=== PATIENT | male | born 1965 | race Caucasian/White ===

== ENCOUNTER 2018-01-31 06:52 | Day surgery (SDC) | payer BC ==
--- NOTE | 2018-01-28 11:31 | HP ---
HISTORY AND PHYSICAL: DATE OF ADMISSION: 01/31/18 DATE OF SURGERY: 01/31/18 DATE OF OFFICE VISIT: 01/28/18 SURGEON: Dr. Martínez * (DICTATED BY LISA FUNEZ) PROCEDURE: Right knee arthroscopy with partial meniscectomy, possible chondroplasty, possible synovectomy. CHIEF COMPLAINT: Right knee pain. HISTORY OF PRESENT ILLNESS: Mr. Peck is a 52-year-old gentleman with complaints of right knee pain and MRI confirms meniscus tear and he has elected to proceed with right knee arthroscopy with partial meniscectomy. PAST MEDICAL HISTORY: Denies. PAST SURGICAL HISTORY: Left hand surgery and dental implants. CURRENT MEDICATIONS: 1. Glucosamine. 2. Lipoflavonoid. ALLERGIES: None. FAMILY HISTORY: Cancer and diabetes. SOCIAL HISTORY: A 52-year-old gentleman lives with his and daughter. He does not smoke cigarettes, smokes occasional marijuana, uses occasional alcohol. REVIEW OF SYSTEMS: A complete 14-point review of systems was reviewed with the patient all negative and noncontributory. He denies history of DVT, PE, hepatitis C, HIV, or anesthesia problems. PHYSICAL EXAMINATION GENERAL: He is well-developed, well-nourished, in no acute distress. VITAL SIGNS: He stands 5 feet 10 inches tall, weighs 209 pounds. Blood pressure is 137/88, his heart rate is 62. HEENT: Normocephalic, atraumatic. NECK: Supple. No palpable lymph nodes. PULMONARY: The lungs are clear to auscultation bilaterally. CARDIO: Regular rate and rhythm. Strong S1 and S2. ABDOMEN: Soft, nontender, and nondistended. MUSCULOSKELETAL: Right lower extremity, the skin is intact. There are no open wounds or abrasions. He has some tenderness along the medial and lateral joint lines. Some moderate effusion. Range of motion is 5 to 120 degrees. Positive Makenzie. Positive Kaycee. 2+ dorsalis pedis pulses. Intact sensation in his lower extremity. Muscle group strengths are intact at 5/5. NEUROLOGIC: He is alert and oriented x3. Cranial nerves II through XII are intact. ASSESSMENT AND PLAN: Mr. Peck is a 52-year-old gentleman who complains of right knee pain. MRIs confirm meniscus tear. He has elected to proceed with right knee arthroscopy with partial meniscectomy, possible chondroplasty, possible synovectomy. The surgery is scheduled for 01/31/[address] Martínez. Dr. Martínez discussed the risks and benefits of the surgery on today's visit and all of his questions were answered. He will follow up with Dr. Martínez in 2 weeks after the surgery. LISA FUNEZ [id number]/[facility] #: [id number] [facility]ITAL[facility]
[~2018-01-31 06:52] MED LIST: Buffered Lidocaine 0.9% SYRIN* 5 ML/SYR SYRINGE INTRADERM ONE; Dexamethasone IV* 4 MG/ML 1 ML (4 MG) IV SLOW PU ONE; Famotidine IV* 10 MG/ML 2 ML (20 mg) IV ONE
[2018-01-31] MEDS ORDERED: Famotidine IV* 10 MG/ML 2 ML (20 mg) ONE (07:06)
[2018-01-31] MEDS ORDERED: Dexamethasone IV* 4 MG/ML 1 ML (4 MG) ONE (07:06)
[2018-01-31] MEDS ORDERED: ceFAZolin 2 GM PREMIX (*) 2 GM/50 ML BAG IVPB ONE (07:06)
[2018-01-31] MEDS ORDERED: Buffered Lidocaine 0.9% SYRIN* 5 ML/SYR SYRINGE ONE (07:07)
[2018-01-31] MEDS ORDERED: Midazolam* 1 MG/ML 5 ML VIAL (5 MG) ONE (07:46)
[2018-01-31] MEDS ORDERED: fentaNYL* 50 MCG/ML 2 ML VIAL (100 MCG VIAL) ONE ×2 (07:46→08:38)
[2018-01-31] MEDS ORDERED: Propofol* 10 MG/ML 20 ML BTL IV PUSH ONE (07:46)
[2018-01-31] MEDS ORDERED: Lidocaine 2% PF * 5 ML VIAL ONE (07:46)
[2018-01-31] MEDS ORDERED: fentaNYL* 50 MCG/ML 2 ML VIAL (100 MCG VIAL) IV PRN (07:49)
[2018-01-31] MEDS ORDERED: Naloxone* 0.4 MG/ML 1 ML VIAL IV PRN (07:49)
[2018-01-31] MEDS ORDERED: oxyCODONE/Acetamin 5/325 MG* TAB PO PRN (07:49)
[2018-01-31] MEDS ORDERED: HYDROcodone/ACETAMIN 5-325 MG* 1 TAB PO PRN (07:49)
[2018-01-31] MEDS ORDERED: Ondansetron INJ* 2 MG/ML VIAL IV PRN (07:49)
[2018-01-31] MEDS ORDERED: Ketorolac INJ* 30 MG/ML 1 ML VIAL ONE (08:11)
[2018-01-31] MEDS ORDERED: methylPREDNISolone ACETATE 80* 80 MG/ML 1 ML VIAL ONE (08:12)
[2018-01-31] MEDS ORDERED: Bupivacaine 0.5% SDV PF* 30ML VIAL ONE (08:13)
[2018-01-31] MEDS ORDERED: DiMENhydriNATE IV* 50 MG/ML VIAL ONE (08:42)
[2018-01-31] MEDS ORDERED: oxyCODONE/Acetamin 5/325 MG* TAB ONE (09:47)
[2018-01-31 10:39] VITALS: BP 108/63
--- NOTE | 2018-01-31 22:59 | OP ---
DATE OF OPERATION: 01/31/18 - [facility] DATE OF : 63 SURGEON: Yina Martínez MD STAGE SETTINGS PAINTER: LISA Ortiz. Ms. Kimbrough did help throughout the procedure with preparation of the leg, wound retraction, and manipulation of the knee and wound closure. ANESTHESIOLOGIST: Dr. Mcmahan. ANESTHESIA: General. PRE-OP DIAGNOSES: Right knee medial and lateral meniscal tears, mild osteoarthritis, anterior cruciate ligament tear. POST-OP DIAGNOSIS: Right knee radial tear of the medial meniscus, complex tear of the lateral meniscus, near full tear of the anterior cruciate ligament, moderate-to- severe degenerative changes in the patellofemoral and lateral compartment. OPERATIVE PROCEDURE: Right knee arthroscopy with partial medial meniscectomy and partial lateral meniscectomy. ESTIMATED BLOOD LOSS: Less than 25 cc. COMPLICATIONS: None. SPECIMEN: None. BRIEF HISTORY/INDICATIONS: Mr. Peck is a 52-year-old gentleman who was playing basketball on 06/14/17 when he rebounded a ball and felt something pop in his right knee. Initially, he was on crutches and took part in physical therapy. He continued to have pain, mechanical symptoms in the knee and feeling some instability. He had an MRI, which showed near full tear of the ACL both medial and lateral meniscal tears and some mild arthritis. The patient was offered multiple surgical options and eventually elected to hold off on ACL reconstruction but proceed with right knee arthroscopy with partial meniscectomies and possible chondroplasty, possible synovectomy due to his mechanical symptoms. Informed consent was obtained from the patient. He understood the risks of surgery included but were not limited to bleeding, infection, damage to nearby structures, continued pain, need for further surgery , early progression of arthritis, retear of the meniscus, continued knee instability, stroke, heart attack, blood clot and . He wished to proceed. INTRAOPERATIVE FINDINGS: Intraoperatively, the patient was noted to have grade 3 and 4 Outerbridge cartilage changes with exposed subchondral bone in the patellofemoral compartment and lateral compartment. He had a complex tear of the lateral meniscus with fragment slipped into the posterior recess both radial and linear parts of the tear involving the majority of the lateral body and posterior body of the lateral meniscus. He had a parrot beak type tear in the medial meniscus near the junction of the body and posterior horn. Patient' s medial meniscal tear was in the white red zone. Lateral meniscal tear was in the white red and red red zone. Patient was noted to have nearly full ACL tear as well. DESCRIPTION OF PROCEDURE: Mr. Peck was identified in the preanesthesia unit. His right lower extremity was marked as correct operative side. Informed consent was signed and placed in the chart. Patient was taken to the operating room and placed under general anesthesia. Right lower extremity was prepped and draped in the usual sterile fashion. Preop time-out was made to correctly identify the patient's side and site. Appropriate perioperative antibiotics were given within one hour of incision. A 0.5 cm lateral portal incision was made with a 15 blade and carried down through the capsule. Trocar was introduced. As soon as light and water sources were turned down, there was immediate visualization of the suprapatellar pouch. A tour of the knee joint was performed. Suprapatellar pouch had no obvious abnormality. The patellofemoral joint has grade 3 and 4 Outerbridge cartilage changes with deep bruise and exposed subchondral bone in trochlear groove. No significant cartilage flaps. Medial gutters showed no loose body or plica. Medial compartment showed some grade 2 and 3 Outerbridge cartilage changes along the medial femoral condyle. Medial meniscus had a parrot beak type radial tear in the junction of the body and posterior horn. This was displaced anteriorly. ACL appeared to be have near full tear. There was large amounts of anterior inflammatory tissues. The knee was placed in a figure-4 position. There was a complex tear involving the entire body and posterior horn of the lateral meniscus. This had a longitudinal component as well as a radial component. There was grade 3 and 4 Outerbridge cartilage changes along the lateral tibial plateau posteriorly with exposed subchondral bone and significant cartilage loss. Lateral gutters showed no loose body or plica. Under direct visualization, a medial portal incision was made. The probe was introduced and a second tour of the knee joint was performed. No additional findings were noted. Shaver and radiofrequency ablation wand were used to clear soft tissue and any anterior stump of the ACL from the anterior joint line to improve visualization. Probing of the ACL showed that there was very minimal amount of the ACL remaining but there was some intact ACL. A straight biter and shaver were used to perform partial medial meniscectomy in the white red zone. There was anteriorly displaced parrot beak type radial tear. This was easily removed and smooth border of the meniscus was obtained. Probing of the medial meniscus showed no additional meniscal tears. The knee was placed in figure-4 position. The lateral meniscal tear was quite complex and did involve both in red white and red red zone. Probing of the tear showed a fragment had been displaced into the posterior capsule and this was reduced into the joint. Straight biter and shaver were used to perform partial lateral meniscectomy until there was a smooth border with no additional tear. Radiofrequency ablation wand was used to further smooth the edge of the meniscus. Further probing of the meniscus showed no additional tears. The knee was copiously irrigated with sterile saline. All instruments were removed. The incisions were closed using interrupted 3-0 nylon suture. Intra- articular injection of 80 mg of Depo-Medrol and 6 cc of 0.25% Marcaine were placed in the knee joint. Patient's incisions were covered with Xeroform, 4x4s and Webril. Burt wrap and cold pack were placed over this. Patient's anesthesia was reversed without difficulty. He was taken to the PACU in stable condition. Intended weightbearing will be weightbearing as tolerated. Intended DVT prophylaxis will be aspirin. [id number]/[facility] #: [id number] KWASI
== END 2018-01-31 10:45 | disposition home or self-care (01) ==
LOC: OR 06:52
PROVIDERS: ATTEND Orthopaedic Surgery Adult Reconstructive Orthopaedic Surgery
DX: S83.241A Other tear of medial meniscus, current injury, right knee, initial encounter (principal); S83.281A Other tear of lateral meniscus, current injury, right knee, initial encounter; X50.0XXA Overexertion from strenuous movement or load, initial encounter; Y93.67 Activity, basketball; Y92.310 Basketball court as the place of occurrence of the external cause
CPT/HCPCS: A9270-GY; J0690; J1040; J1100; J1240; J1885; J2250; J2704; J3010

== ENCOUNTER 2018-03-06 18:25 | Emergency (ER) | payer BC ==
--- OUTSIDE RECORDS SUMMARY | 2018-03-06 18:30 | XMS REPORT ---
:1965 External Reference #:[id number] Author Organization [employer] Address [address] [place] [address] Phone [phone] Care Team Providers Name Role Phone Schuyler Bains MD Primary Care Physician Unavailable Payers Type Date Identification Numbers Payment Provider Subscriber Commercial Policy Number: [id number] [facility] Romulo Peck PayID: [id number] [address] [place] [address] Problems Date Description Provider Status Onset: 11/26/2017 Localized, primary osteoarthritis Yina Martínez M.D. 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 activities dx - r knee acl tear Lipoflavonoid / Active Tablets Unknown 0000 Percocet 01/30/ Hx Tablets 5-325mg 45tabs 1 by mouth Yina 2017 - every 4-6 Mauricio, 02/28/ hours as M.D. 2018 needed pain Aspirin 01/30/ Hx Tablets 325mg 28tabs take 1 by Yina 2017 - mouth twice Mauricio, 02/28/ a day for M.D. 2018 two weeks Medications Administered in Office Medication Date Status Form Strength Qnty SIG Indications Ordering Provider Depomedrol Administered Injection Yina 40MG Charissa Martínez M.D. Vital Signs Date Vital Result Comment 03/01/2018 Height 72 inches 6'0" Weight 205.00 lb BP Systolic 138 mmHg BP Diastolic 80 mmHg Body Temperature 97.5 F Pain Level 0 BMI (Body Mass Index) 27.8 kg/m2 02/15/2018 Height 72 inches 6'0" Weight 205.00 lb BP Systolic 160 mmHg BP Diastolic 102 mmHg Body Temperature 97.4 F Pain Level 1 BMI (Body Mass Index) 27.8 kg/m2 01/28/2018 Height 72 inches 6'0" Weight 209.00 lb Heart Rate 62 /min BP Systolic 136 mmHg BP Diastolic 88 mmHg Respiratory Rate 17 /min Body Temperature 97.8 F Pain Level 5 BMI (Body Mass Index) 28.3 kg/m2 11/26/2017 Height 72 inches 6'0" Weight 203.00 lb Heart Rate 76 /min BP Systolic 134 mmHg BP Diastolic 84 mmHg BMI (Body Mass Index) 27.5 kg/m2 Results Description No Information Procedures Date CPT Code Description Status 01/31/2018 98146 Arthroscopy,Knee,Meniscectomy Media & Lateral Completed 01/31/2018 72224 Arthroscopy,Knee,Meniscectomy Media & Lateral Completed 11/26/2017 39103 Inject/Drain Joint/Bursa Major W/O US Completed Encounters Type Date Location Provider CPT E/M Dx Office Visit 11/26/2017 [facility] Yina Martínez M.D. 83633 M25.561 1[facility] M25.461 M17.11 S83.241A S83.261A S83.511A Plan of Care 03/01/2018 - Yina Martínez M.D.M25.461 Effusion, right kneeFollow up:Follow up: M25.561 Pain in right kneeM17.11 Unilateral primary osteoarthritis, right kneeS83.261D Prph tear of lat mensc, current injury, right knee, subs
--- OUTSIDE RECORDS SUMMARY | 2018-03-06 18:30 | XMS REPORT ---
:1965 External Reference #:[id number] Author Organization [employer] Address [address] [address] Phone [phone] Care Team Providers Name Role Phone Schuyler Bains MD Primary Care Physician Unavailable Payers Type Date Identification Numbers Payment Provider Subscriber Commercial Policy Number: [id number] [facility] Romulo Peck PayID: [id number] [address] [place] [address] Problems Date Description Provider Status Onset: 11/26/2017 Localized, primary osteoarthritis Yina Martínez M.D. 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 needed pain Aspirin 01/30/ Active Tablets 325mg 28tabs take 1 by Yina 2018 mouth twice Mauricio, a day for M.D. two weeks Custom Right 01/28/ Active 1units wear at all M25.561 Yina Knee ACL Brace 2018 times with brady Martínez M.D. activities dx - r knee acl tear Lipoflavonoid / Active Tablets Unknown 0000 Medications Administered in Office Medication Date Status Form Strength Qnty SIG Indications Ordering Provider Depomedrol Administered Injection Yina 40MG Charissa Martínez M.D. Vital Signs Date Vital Result Comment 02/15/2018 Height 72 inches 6'0" Weight 205.00 [...] Procedures Date CPT Code Description Status 01/31/2018 39832 Arthroscopy,Knee,Meniscectomy Media & Lateral Completed 01/31/2018 83264 Arthroscopy,Knee,Meniscectomy Media & Lateral Completed 11/26/2017 13560 Inject/Drain Joint/Bursa Major W/O US Completed Encounters Type Date Location Provider CPT E/M Dx Office Visit 11/26/2017 [facility] Yina Martínez M.D. 15742 M25.561 1:30p [facility] M25.461 M17.11 S83.241A S83.261A S83.511A Plan of Care Future Appointment(s):03/01/2018 1:00 pm - Yina Martínez M.D. at [facility]02/15/2018 - Yina Martínez M.D.M25.461 Effusion, right kneeFollow up:Follow up: 2 chhrvO13.561 Pain in right kneeM17.11 Unilateral primary osteoarthritis, right kneeS83.261D Prph tear of lat mensc, current injury, right knee, subsZ48.89 Encounter for other specified surgical aftercare
[2018-03-06 18:47] VITALS: BP 140/92
[2018-03-06] MEDS ORDERED: ceFAZolin 500 MG VIAL(*) 500 MG VIAL IM ONE (18:55)
[2018-03-06] MEDS ORDERED: Tetan/Diph/Pertus SYR(Tdap)* 0.5 ML SYR(BOOSTRIX) use SYR IM ONE (18:55)
--- NOTE | 2018-03-06 19:41 | UC ---
Laceration HPI - HPI Summary HPI Summary: Patient is a 52-year-old male presenting to the with a laceration measuring approximately 1.5 cm horizontally to the right lower extremity. There is superficial and bleeding is well controlled on arrival. 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 He is concerned over an infection. Unknown tetanus date. - History Of Current Complaint Chief Complaint: UCLaceration Stated Complaint: leg laceration Time Seen by Provider: 03/06/18 18:46 Hx Obtained From: Patient Mechanism Of Injury: Sharp Trauma Onset/Duration: Sudden Onset Severity: Mild Pain Intensity: 1 Pain Scale Used: 0-10 Numeric Aggravating Factors: Nothing - Allergies/Home Medications Allergies/Adverse Reactions: Allergies Allergy/AdvReac Type Severity Reaction Status Date / Time No Known Allergies Allergy Verified 03/06/18 18:48 PMH/Surg Hx/FS Hx/Imm Hx Previously Healthy: Yes - Surgical History Surgical History: Yes Surgery Procedure, Year, and Place: left hand surgery when 15 years old. dental implants. tonsillectomy. left knee surgery January 2018 - Social History Occupation: Employed Full-time Lives: With Family Alcohol Use: Daily Substance Use Type: Marijuana Substance Use Comment - Amount & Last Used: will use a vape occassionally Smoking Status (MU): Never Smoked Tobacco Review of Systems Constitutional: Negative Skin: Negative Respiratory: Negative Cardiovascular: Negative Motor: Negative Neurovascular: Negative Psychological: Negative Is Patient Immunocompromised?: No All Other Systems Reviewed And Are Negative: Yes Physical Exam Triage Information Reviewed: Yes Appearance: Well-Appearing, Well-Nourished Vital Signs: Initial Vital Signs Temp 98.4 F 03/06/18 18:43 Pulse 76 03/06/18 18:43 Resp 18 03/06/18 18:43 BP 140/92 03/06/18 18:43 Pulse Ox 98 03/06/18 18:43 Vital Signs Reviewed: Yes Eye Exam: Normal Neck exam: Normal Neck: Positive: Supple, No Lymphadenopathy Cardiovascular Exam: Normal Cardiovascular: Positive: RRR Musculoskeletal Exam: Normal Musculoskeletal: Positive: Strength Intact Neurological Exam: Normal Psychological: Positive: Normal Response To Family Skin Exam: Other - 1.5cm horizontal laceration to the R lower extremity Laceration Course/Dx - Course/Dx Course Of Treatment: During the course of treatment, the patient's wound was cleaned well with chlorhexidine solution. The laceration measures 1.5 cm in length and is superficial. Cleansed thoroughly in adhesive glue applied. 5 Steri-Strips applied overlying. Tetanus updated. 1 g IM Cefazolin for preventin of infection d/t contaminated fluids into the wound. Patient understands return precautions and is okay with plan to discharge. - Differential Dx - Laceration/Wound Provider Diagnoses: Laceration Discharge - Sign-Out/Discharge Documenting (check all that apply): Patient Departure - Discharge Plan Condition: Stable Disposition: HOME Patient Education Materials: Skin Adhesive Care (ED), Steristrips (ED) Referrals: Schuyler Bains MD [Primary Care Provider] - Additional Instructions: 3-4 days steri strips will fall off or you may take them off If they fall off before this time, you may apply new steri strips Keep the area dry x 1 day - Billing Disposition and Condition Condition: STABLE Disposition: Home
== END 2018-03-06 19:38 | disposition home or self-care (01) ==
LOC: UCEAST 18:25
DX: S81.811A Laceration without foreign body, right lower leg, initial encounter (principal); W22.8XXA Striking against or struck by other objects, initial encounter; Y93.9 Activity, unspecified; Y92.9 Unspecified place or not applicable; Z23 Encounter for immunization
CPT/HCPCS: 12001; 90471; 90715; 96372; 99211; 99212; G0463; J0690

== ENCOUNTER 2019-05-04 15:03 | Emergency (ER) | payer BC ==
[2019-05-04 15:14] VITALS: BP 127/66
[2019-05-04] MEDS ORDERED: Sulfamethox/Trimethoprim DS 800/160* TAB PO ONE (15:34)
--- NOTE | 2019-05-04 15:50 | UC ---
Complaint Male HPI - HPI Summary HPI Summary: Patient is a 54yo male presenting with burning, frequency, and urgency with urination since this morning. Patient says he was in his wet suit on Sunday for approximately 8 hours, which may have contributed to his symptoms. He notes fatigue and fever of 102 at home. He denies nausea and vomiting. Notes bilateral lower back pain but says that is not unusual after kite surfing for that long. Denies abdominal pain. Denies history of UTI, STIs, kidney stones, or prostate issues. Patient took ibuprofen earlier today with little relief. Patient is able to eat and keep down fluids but admits to lack of appetite today. He denies penile discharge. Denies blood in urine. Denies pelvic pressure. - History of Current Complaint Chief Complaint: UCGU Stated Complaint: fever, AND PAINFUL URINATION Time Seen by Provider: 05/04/19 15:07 Hx Obtained From: Patient Onset/Duration: Sudden Onset, Lasting Hours Timing: Constant Severity Initially: Mild Severity Currently: Mild Pain Intensity: 4 Pain Scale Used: 0-10 Numeric - Allergies/Home Medications Allergies/Adverse Reactions: Allergies Allergy/AdvReac Type Severity Reaction Status Date / Time No Known Allergies Allergy Verified 05/04/19 15:14 Home Medications: Home Medications Vitamin B Complex CAP* [B Complex CAP*] 1 cap PO DAILY 05/04/19 [History Confirmed 05/04/19] PMH/Surg Hx/FS Hx/Imm Hx - Surgical History Surgical History: Yes Surgery Procedure, Year, and Place: left hand surgery when 15 years old. dental implants. tonsillectomy. left knee surgery January 2018 - Family History Known Family History: Positive: Non-Contributory - Social History Alcohol Use: Daily Alcohol Amount: 2-3 drinks per day Substance Use Type: Marijuana Substance Use Comment - Amount & Last Used: will use a vape occassionally Smoking Status (MU): Never Smoked Tobacco Review of Systems All Other Systems Reviewed And Are Negative: Yes Constitutional: Positive: Fever, Chills, Fatigue ENT: Positive: Negative Respiratory: Positive: Negative Cardiovascular: Positive: Negative Gastrointestinal: Negative: Abdominal Pain, Vomiting, Diarrhea, Nausea Genitourinary: Positive: Dysuria, Frequency, Urgency, Vaginal/Penile Burning. Negative: Hematuria, Vaginal/Penile Itching, Vaginal/Penile Discharge, Vaginal/ Penile Pain, Vaginal/Penile Tenderness, Abnormal Bleeding Neurovascular: Positive: Negative Musculoskeletal: Positive: Negative Neurological: Positive: Negative. Negative: Headache Physical Exam Triage Information Reviewed: Yes Appearance: Well-Nourished, Ill-Appearing Vital Signs: Initial Vital Signs Temp 100.5 F 05/04/19 15:08 Pulse 93 05/04/19 15:08 Resp 20 05/04/19 15:08 BP 127/66 05/04/19 15:08 Pulse Ox 100 05/04/19 15:08 Laboratory Tests 05/04/19 15:23 POC Urine Color Yellow POC Urine Clarity Cloudy POC Urine pH 6.0 POC Ur Specif [place] 1.025 POC Urine Protein Trace A POC Ur Glucose (UA) Negative POC Urine Ketones 1+ A POC Urine Blood 1+ A POC Urine Nitrite Positive A POC Urine Bilirubin Negative POC Urine Urobilinogen 0.2 POC U Leukocyte Esteras 2+ A Vital Signs Reviewed: Yes Eyes: Positive: Conjunctiva Clear Neck: Positive: Supple, Nontender, No Lymphadenopathy Respiratory Exam: Normal Respiratory: Positive: Chest non-tender, Lungs clear, Normal breath sounds, No respiratory distress Cardiovascular Exam: Normal Cardiovascular: Positive: RRR. Negative: Tachycardia Abdominal Exam: Normal Abdomen Description: Positive: Nontender, Soft. Negative: CVA Tenderness (R), CVA Tenderness (L), Distended, Guarding Bowel Sounds: Positive: Present Neurological: Positive: Fatigued Complaint Male Course/Dx - Course Course Of Treatment: Discussed with patient to take antibiotic exactly as directed for the treatment of UTI. He received first dose here. He may continue to take tylenol and ibuprofen as directed fever and pain relief. Told to drink plenty of fluids. Patient instructed to follow up with primary care physician or one of the referred urologists listed before his course of antibiotics is finished for further evaluation. Patient instructed to go to the emergency room if he experiences worsening symptoms, including nausea, vomiting, or a fever higher than 105. - Differential Dx/Diagnosis Differential Diagnosis/HQI/PQRI: Prostatitis Provider Diagnosis: Urinary tract infection Discharge ED - Sign-Out/Discharge Documenting (check all that apply): Patient Departure All imaging exams completed and their final reports reviewed: No Studies - Discharge Plan Condition: Stable Disposition: HOME Prescriptions: Sulfamethox/Trimethoprim DS* [Bactrim DS 800/160 TAB*] 1 tab PO BID #19 tab Patient Education Materials: Urinary Tract Infection in Men (ED) Referrals: Schuyler Bains MD [Primary Care Provider] - As Soon As Possible Norbert Karimi MD [Medical Doctor] - As Soon As Possible Philippe Jo MD [Medical Doctor] - As Soon As Possible [facility] [Provider Group] Additional Instructions: As discussed, take the antibiotic exactly as directed for the treatment of your UTI. You may continue to take tylenol and ibuprofen as directed fever and pain relief. Be sure to drink plenty of fluids. Follow up with your primary care physician or one of the referred urologists listed below before your course of antibiotics is finished. Go to the emergency room if you experience worsening symptoms, including nausea , vomiting, or a fever higher than 105. - Billing Disposition and Condition Condition: STABLE Disposition: Home
== END 2019-05-04 15:57 | disposition home or self-care (01) ==
LOC: UCEAST 15:03
DX: N39.0 Urinary tract infection, site not specified (principal)
CPT/HCPCS: 81003; 87077; 87086; 87186; 99212; A9270-GY; G0463